=== PATIENT | female | born 1960 | race Caucasian/White ===

== ENCOUNTER 2018-02-05 09:15 | Inpatient (IN) | payer BC ==
[~2018-02-05] VITALS: Ht 182.9 cm; Wt 109.5 kg
[2018-02-05] MEDS ORDERED: GABA-532 (11:37)
[2018-02-05] MEDS ORDERED: LIRA0.6P2 (11:37)
[2018-02-05 12:31] LABS: BASOPHILS # (AUTO) 0.1 X10'3 (0-0.2); EOSINOPHILS # (AUTO) 0.1 X10'3 (0-0.9); LYMPHOCYTES # (AUTO) 2.6 X10'3 (1.1-4.8); LYMPHOCYTES % (AUTO) 36.3 % (21-51); MEAN CORPUSCULAR HEMOGLOBIN 29.8 PG (27.0-31.0); MEAN CORPUSCULAR HGB CONC 34.3 % (33.0-36.5); MEAN CORPUSCULAR VOLUME 86.8 FL (78-98); MEAN PLATELET VOLUME 8.2 FL (7.4-10.4); MONOCYTES # (AUTO) 0.5 X10'3 (0-0.9); MONOCYTES % (AUTO) 6.4 % (2-12); NEUTROPHILS # (AUTO) 3.8 X10'3 (1.8-7.7); NEUTROPHILS % (AUTO) 54.3 % (42-75); PRE OP HEMATOCRIT 44.5 % (35.0-45.0); PRE OP HEMOGLOBIN 15.3 g/dL (12.0-16.0); PRE OP PLATELET COUNT 178 X10'3 (140-440); RED BLOOD COUNT 5.13 X10'6 (4.20-5.60); RED CELL DISTRIBUTION WIDTH 14.5 % (11.5-14.5)
[2018-02-05 12:40] LABS: HEMOGLOBIN A1C 6.4 % (4.5-6.2)
[2018-02-05 12:47] LABS: PRE OP INR 1.1 INR; PRE OP PROTIME 10.9 SECONDS (9.0-12.0)
[2018-02-05 12:56] LABS: BLOOD UREA NITROGEN 13 MG/DL (7-18); BUN/CREATININE RATIO 19.4 (6.6-38.0); CHLORIDE 103 MMOL/L (99-107); CREATININE 0.67 MG/DL (0.40-0.90); PRE OP ANION GAP 7 (8-16); PRE OP GLUCOSE 112 MG/DL (70-104); PRE OP POTASSIUM 4.1 MMOL/L (3.4-5.1); PRE OP SODIUM 138 MMOL/L (135-145); TOTAL CARBON DIOXIDE 27.9 MMOL/L (24-32)
[2018-02-05 12:57] LABS: ALBUMIN 3.8 G/DL (3.4-5.0); ALBUMIN/GLOBULIN RATIO 1.1 (1.1-1.5); ALKALINE PHOSPHATASE 91 IU/L (46-116); CALCIUM 9.2 MG/DL (8.5-10.1); PRE OP ALT 42 U/L (30-65); PRE OP AST 27 U/L (10-37); PRE OP BILIRUB, TOTAL 0.5 MG/DL (0.0-1.0); TOTAL PROTEIN 7.2 G/DL (6.4-8.2); eGFR > 90 ML/MIN
[2018-02-09] MEDS ORDERED: ALLO300T2 PO (10:18)
[2018-02-09] MEDS ORDERED: ALPR-623 PO (10:20)
[2018-02-09] MEDS ORDERED: AMIT25TA10 PO (10:21)
[2018-02-09] MEDS ORDERED: DULO-31 PO (10:23)
[2018-02-09] MEDS ORDERED: ESCI10TA PO (10:24)
[2018-02-09] MEDS ORDERED: METF500T PO (10:27)
[2018-02-09] MEDS ORDERED: METO50TA7 PO (10:28)
[2018-02-09] MEDS ORDERED: ROSU10TA PO (10:31)
[2018-02-09] MEDS ORDERED: VALS80TA2 PO (10:33)
[2018-02-10] VITALS (16 sets, daily range): BP systolic 88–161; BP diastolic 58–98
[2018-02-10] MEDS ORDERED: ringers solution, lacted 1,000 ML IV SCH ×2 (05:00→15:01)
[2018-02-10] MEDS ORDERED: DOCUMENT DATE & TIME OF BETA-BLOCKER PO ONE (05:30)
[2018-02-10] MEDS ORDERED: tranexamic acid inj. 1,000 MG in normal saline 100ml IV soln 90 ML IV ONE (05:30)
[2018-02-10] MEDS ORDERED: vancomycin inj 1,500 MG in normal saline 300ml IV soln IV ONE (05:30)
[2018-02-10] MEDS ORDERED: famotidine 20mg tablet PO ONE (05:30)
[2018-02-10] MEDS ORDERED: ceFAZolin inj. 2,000 MG in normal saline 100ml IV soln 100 ML IV ONE (05:30)
[2018-02-10] MEDS ORDERED: LIDOcaine 1% (10mg/ml) 2ml vial ONE (12:55)
[2018-02-10] MEDS ORDERED: morphine 4 MG/ML inj SYRINge IV ONE (13:30)
[2018-02-10] MEDS ORDERED: desflurane 240ml liquid inh. IH ONE (13:40)
[2018-02-10] MEDS ORDERED: ePHEDrine 50MG/ML INJ. ONE (13:40)
[2018-02-10] MEDS ORDERED: morphine /PF 1mg/ml 10ml inj. ONE (13:45)
[2018-02-10] MEDS ORDERED: midazolam 2 mg/2 ml injection ONE (13:45)
[2018-02-10] MEDS ORDERED: BUPIVAcaine 0.5% inj/PF 30 ml vial ONE (13:48)
[2018-02-10] MEDS ORDERED: ceFAZolin 1000mg inj ONE (14:01)
[2018-02-10] MEDS ORDERED: LIDOcaine 2% (20mg/ml) 5ml vial ONE (14:57)
[2018-02-10] MEDS ORDERED: propofol inj 20 ML IV ONE (14:58)
[2018-02-10] MEDS ORDERED: rocuronium 10mg/ml inj IV ONE (14:58)
[2018-02-10] MEDS ORDERED: naloxone 2mg/2ml inj 2 MG in normal saline 500ml IV soln 500 ML IV PRN (15:03)
[2018-02-10] MEDS ORDERED: fentaNYL/PF 50MCG/1 ML 2ML syringe IV PRN (15:05)
[2018-02-10] MEDS ORDERED: ondansetron/PF 4mg/2ml inj IV PRN ×4 (15:05→17:15)
[2018-02-10] MEDS ORDERED: acetaminophen 1,000mg/100ml IV 100 ML IV PRN (15:05)
[2018-02-10] MEDS ORDERED: proCHLORperazine 10 MG/2 ml inj IV PRN (15:05)
[2018-02-10] MEDS ORDERED: morphine 4 MG/ML inj SYRINge IV PRN ×2 (15:05)
[2018-02-10] MEDS ORDERED: meperidine/PF 50mg/ml syringe IV PRN (15:05)
[2018-02-10] MEDS ORDERED: diphenhydrAMINE 50 mg/ml inj IV PRN (15:05)
[2018-02-10] MEDS ORDERED: dexamethasone sod phosphate 4mg/ml inj. ONE (16:41)
[2018-02-10] MEDS ORDERED: magnesium hydroxide 30ml (MOM) UD suspension PO PRN ×2 (17:15)
[2018-02-10] MEDS ORDERED: acetaminophen 325mg tablet PO PRN ×2 (17:15)
[2018-02-10] MEDS ORDERED: HYDROmorphone inj. 0.5 MG/0.5 ML DISP.SYRIN IV PRN (17:15)
[2018-02-10] MEDS ORDERED: HYDROcodone/acetaminophen 10/325mg tab PO PRN (17:15)
[2018-02-10] MEDS ORDERED: bisacodyl 10mg suppository rectal RC PRN ×2 (17:15)
[2018-02-10] MEDS ORDERED: diphenhydrAMINE 25mg capsule PO PRN ×4 (17:15)
[2018-02-10] MEDS: fentaNYL/PF 50MCG/1 ML 2ML syringe IV PRN ×2 (17:16→17:20)
[2018-02-10] MEDS ORDERED: dextrose 50%-water 50ml dispensing syringe IV PRN ×2 (17:20)
[2018-02-10] MEDS ORDERED: MESSAGE TO PHARMACY PO ONE (17:20)
[2018-02-10] MEDS ORDERED: dextrose ORAL solution 15 GM/59 ML bottle PO PRN ×2 (17:20)
[2018-02-10] MEDS: aspirin 81mg tablet.DR PO SCH (18:18)
[2018-02-10] MEDS: HYDROcodone/acetaminophen 10/325mg tab PO PRN ×2 (18:18→22:30)
[2018-02-10] MEDS ORDERED: vancomycin/NS 1 GM ADD-VANTAGE 250 ML IV SCH (20:00)
[2018-02-10] MEDS ORDERED: tranexamic acid inj. 1,100 MG in normal saline 100ml IV soln 100 ML IV ONE (20:00)
[2018-02-10] MEDS ORDERED: sennosides 8.6mg tablet PO SCH (21:00)
[2018-02-10] MEDS: valsartan 80mg tablet PO SCH (21:00)
[2018-02-10] MEDS: insulin glargine (Lantus) pen - multi-dose SQ SCH (21:00)
[2018-02-10] MEDS: gabapentin 300mg capsule PO SCH (21:24)
[2018-02-10] MEDS: allopurinol 300 MG tablet PO SCH (21:24)
[2018-02-10] MEDS: CITALOpram 10mg tablet PO SCH (21:24)
[2018-02-10] MEDS: sennosides 8.6mg tablet PO SCH (21:24)
[2018-02-10] MEDS: duloxetine 30mg CAPSULE.DR PO SCH (21:25)
[2018-02-10] MEDS: metoprolol succinate 25mg (24-HOUR) SR. Tablet PO SCH (21:25)
[2018-02-10] MEDS: amitriptyline 25mg tablet PO SCH (21:29)
[2018-02-10] MEDS: potassium cl 20mEq in 1/2 NS 1,000 ML IV SCH (22:34)
[2018-02-11] MEDS: ceFAZolin 1GM/D5W- ADD-VANTAGE 50 ML IV SCH ×2 (00:09→08:14)
[2018-02-11] MEDS: potassium cl 20mEq in 1/2 NS 1,000 ML IV SCH ×3 (01:12→18:57)
[2018-02-11] MEDS: HYDROcodone/acetaminophen 10/325mg tab PO PRN (02:18)
[2018-02-11 02:30] VITALS: BP 97/58
[2018-02-11] MEDS ORDERED: oxyCODONE/APAP 10/325mg tablet PO PRN (05:30)
[2018-02-11 05:57] LABS: BASOPHILS % (AUTO) 0.3 % (0-1); EOSINOPHILS # (AUTO) 0.1 X10'3 (0-0.9); EOSINOPHILS % (AUTO) 1.4 % (0-6); HEMATOCRIT 38.6 % (35.0-45.0); LYMPHOCYTES # (AUTO) 0.7 X10'3 (1.1-4.8); LYMPHOCYTES % (AUTO) 9.4 % (21-51); MEAN CORPUSCULAR HEMOGLOBIN 29.8 PG (27.0-31.0); MEAN CORPUSCULAR HGB CONC 33.8 % (33.0-36.5); MEAN PLATELET VOLUME 8.3 FL (7.4-10.4); MONOCYTES # (AUTO) 0.3 X10'3 (0-0.9); MONOCYTES % (AUTO) 3.4 % (2-12); NEUTROPHILS # (AUTO) 6.8 X10'3 (1.8-7.7); NEUTROPHILS % (AUTO) 85.5 % (42-75); PLATELET COUNT 192 X10'3 (140-440); RED BLOOD COUNT 4.38 X10'6 (4.20-5.60); RED CELL DISTRIBUTION WIDTH 14.2 % (11.5-14.5); WHITE BLOOD COUNT 7.9 X10'3 (4.5-11.0)
[2018-02-11 06:00] VITALS: BP 122/73
[2018-02-11] MEDS: oxyCODONE/APAP 10/325mg tablet PO PRN ×4 (06:05→19:55)
[2018-02-11 06:42] LABS: ALANINE AMINOTRANSFERASE 32 U/L (12-78); ALBUMIN 3.1 G/DL (3.4-5.0); ALKALINE PHOSPHATASE 69 IU/L (46-116); ANION GAP 11 (8-16); ASPARTATE AMINO TRANSFERASE 25 U/L (10-37); BILIRUBIN,TOTAL 0.4 MG/DL (0.1-1.0); BLOOD UREA NITROGEN 12 MG/DL (7-18); CALCIUM 8.8 MG/DL (8.5-10.1); CHLORIDE 101 MMOL/L (99-107); CREATININE 0.86 MG/DL (0.40-0.90); GLUCOSE 260 MG/DL (70-104); POTASSIUM 4.8 MMOL/L (3.5-5.1); SODIUM 137 MMOL/L (135-145); TOTAL CARBON DIOXIDE 25.3 MMOL/L (24-32); TOTAL PROTEIN 6.1 G/DL (6.4-8.2); eGFR 68 ML/MIN
[2018-02-11] MEDS: aspirin 81mg tablet.DR PO SCH ×2 (08:13→18:56)
[2018-02-11] MEDS: HYDROmorphone 2mg tablet PO PRN ×4 (09:01→22:13)
[2018-02-11 10:00] VITALS: BP 108/63
[2018-02-11] MEDS: metFORMIN 500mg tablet PO SCH (10:30)
[2018-02-11 14:00] VITALS: BP 126/66
[2018-02-11 18:39] VITALS: BP 132/77
[2018-02-11] MEDS: insulin glargine (Lantus) pen - multi-dose SQ SCH (21:00)
[2018-02-11] MEDS: CITALOpram 10mg tablet PO SCH (21:11)
[2018-02-11] MEDS: duloxetine 30mg CAPSULE.DR PO SCH (21:11)
[2018-02-11] MEDS: metoprolol succinate 25mg (24-HOUR) SR. Tablet PO SCH (21:11)
[2018-02-11] MEDS: amitriptyline 25mg tablet PO SCH (21:11)
[2018-02-11] MEDS: valsartan 80mg tablet PO SCH (21:11)
[2018-02-11] MEDS: allopurinol 300 MG tablet PO SCH (21:12)
[2018-02-11] MEDS: sennosides 8.6mg tablet PO SCH (21:12)
[2018-02-11] MEDS: gabapentin 300mg capsule PO SCH (21:12)
[2018-02-11 22:35] VITALS: BP 113/68
[2018-02-12] MEDS: oxyCODONE/APAP 10/325mg tablet PO PRN ×6 (00:18→21:32)
[2018-02-12] MEDS: HYDROmorphone 2mg tablet PO PRN ×5 (02:32→20:13)
[2018-02-12 05:41] LABS: BASOPHILS % (AUTO) 0.5 % (0-1); EOSINOPHILS # (AUTO) 0.1 X10'3 (0-0.9); EOSINOPHILS % (AUTO) 1.6 % (0-6); HEMATOCRIT 35.2 % (35.0-45.0); HEMOGLOBIN 11.9 g/dl (12.0-16.0); LYMPHOCYTES # (AUTO) 2.3 X10'3 (1.1-4.8); LYMPHOCYTES % (AUTO) 32.8 % (21-51); MEAN CORPUSCULAR HEMOGLOBIN 29.8 PG (27.0-31.0); MEAN CORPUSCULAR HGB CONC 33.9 % (33.0-36.5); MEAN CORPUSCULAR VOLUME 87.8 FL (78-98); MEAN PLATELET VOLUME 8.3 FL (7.4-10.4); MONOCYTES # (AUTO) 0.5 X10'3 (0-0.9); MONOCYTES % (AUTO) 6.9 % (2-12); NEUTROPHILS # (AUTO) 4.2 X10'3 (1.8-7.7); NEUTROPHILS % (AUTO) 58.2 % (42-75); PLATELET COUNT 154 X10'3 (140-440); RED BLOOD COUNT 4.01 X10'6 (4.20-5.60); RED CELL DISTRIBUTION WIDTH 14.2 % (11.5-14.5); WHITE BLOOD COUNT 7.2 X10'3 (4.5-11.0)
[2018-02-12 06:25] LABS: ALANINE AMINOTRANSFERASE 24 U/L (12-78); ALBUMIN 2.8 G/DL (3.4-5.0); ALBUMIN/GLOBULIN RATIO 0.9 (1.1-1.5); ALKALINE PHOSPHATASE 62 IU/L (46-116); ANION GAP 8 (8-16); ASPARTATE AMINO TRANSFERASE 15 U/L (10-37); BILIRUBIN,TOTAL 0.2 MG/DL (0.1-1.0); BLOOD UREA NITROGEN 7 MG/DL (7-18); BUN/CREATININE RATIO 10.9 (6.6-38.0); CALCIUM 8.5 MG/DL (8.5-10.1); CHLORIDE 105 MMOL/L (99-107); CREATININE 0.64 MG/DL (0.40-0.90); GLUCOSE 200 MG/DL (70-104); POTASSIUM 3.9 MMOL/L (3.5-5.1); SODIUM 141 MMOL/L (135-145); TOTAL CARBON DIOXIDE 28.1 MMOL/L (24-32); TOTAL PROTEIN 5.8 G/DL (6.4-8.2); eGFR > 90 ML/MIN
[2018-02-12] MEDS: aspirin 81mg tablet.DR PO SCH ×2 (07:06→17:33)
[2018-02-12] MEDS: metFORMIN 500mg tablet PO SCH (07:06)
[2018-02-12 10:20] VITALS: BP 113/64
[2018-02-12 18:00] VITALS: BP 117/67
[2018-02-12] MEDS: gabapentin 300mg capsule PO SCH (20:56)
[2018-02-12] MEDS: valsartan 80mg tablet PO SCH (20:56)
[2018-02-12] MEDS: duloxetine 30mg CAPSULE.DR PO SCH (20:56)
[2018-02-12] MEDS: CITALOpram 10mg tablet PO SCH (20:56)
[2018-02-12] MEDS: amitriptyline 25mg tablet PO SCH (20:56)
[2018-02-12] MEDS: metoprolol succinate 25mg (24-HOUR) SR. Tablet PO SCH (20:57)
[2018-02-12] MEDS: sennosides 8.6mg tablet PO SCH (20:57)
[2018-02-12] MEDS: insulin glargine (Lantus) pen - multi-dose SQ SCH (21:00)
[2018-02-12] MEDS: allopurinol 300 MG tablet PO SCH (21:05)
[2018-02-12 22:00] VITALS: BP 105/66
[2018-02-13] MEDS: HYDROmorphone 2mg tablet PO PRN (00:16)
[2018-02-13] MEDS: oxyCODONE/APAP 10/325mg tablet PO PRN ×2 (01:38→05:33)
[2018-02-13 06:25] LABS: BASOPHILS % (AUTO) 0.4 % (0-1); EOSINOPHILS # (AUTO) 0.2 X10'3 (0-0.9); EOSINOPHILS % (AUTO) 2.1 % (0-6); HEMATOCRIT 40.1 % (35.0-45.0); HEMOGLOBIN 13.6 g/dl (12.0-16.0); LYMPHOCYTES # (AUTO) 3.5 X10'3 (1.1-4.8); LYMPHOCYTES % (AUTO) 38.3 % (21-51); MEAN CORPUSCULAR HEMOGLOBIN 29.7 PG (27.0-31.0); MEAN CORPUSCULAR HGB CONC 33.8 % (33.0-36.5); MEAN CORPUSCULAR VOLUME 87.8 FL (78-98); MEAN PLATELET VOLUME 8.1 FL (7.4-10.4); MONOCYTES # (AUTO) 0.7 X10'3 (0-0.9); MONOCYTES % (AUTO) 7.4 % (2-12); NEUTROPHILS # (AUTO) 4.7 X10'3 (1.8-7.7); NEUTROPHILS % (AUTO) 51.8 % (42-75); PLATELET COUNT 201 X10'3 (140-440); RED BLOOD COUNT 4.57 X10'6 (4.20-5.60); RED CELL DISTRIBUTION WIDTH 14.5 % (11.5-14.5); WHITE BLOOD COUNT 9.1 X10'3 (4.5-11.0)
[2018-02-13 06:46] LABS: ALANINE AMINOTRANSFERASE 25 U/L (12-78); ALBUMIN 3.2 G/DL (3.4-5.0); ALBUMIN/GLOBULIN RATIO 0.8 (1.1-1.5); ALKALINE PHOSPHATASE 75 IU/L (46-116); ANION GAP 10 (8-16); ASPARTATE AMINO TRANSFERASE 16 U/L (10-37); BILIRUBIN,TOTAL 0.4 MG/DL (0.1-1.0); BLOOD UREA NITROGEN 9 MG/DL (7-18); BUN/CREATININE RATIO 13.2 (6.6-38.0); CALCIUM 9.4 MG/DL (8.5-10.1); CHLORIDE 100 MMOL/L (99-107); CREATININE 0.68 MG/DL (0.40-0.90); GLUCOSE 132 MG/DL (70-104); SODIUM 142 MMOL/L (135-145); TOTAL CARBON DIOXIDE 32.2 MMOL/L (24-32); eGFR 90 ML/MIN
[2018-02-13 06:50] VITALS: BP 106/71
[2018-02-13] MEDS: aspirin 81mg tablet.DR PO SCH (08:03)
[2018-02-13] MEDS: metFORMIN 500mg tablet PO SCH (08:03)
[2018-02-13 10:46] VITALS: BP 98/59
[2018-02-13 13:23] VITALS: BP 133/83
[2018-02-13] MEDS ORDERED: ketorolac trometh. 30mg/ml inj. IV ONE (13:40)
== END 2018-02-13 15:10 | DRG 470 ==
LOC: EDSTATUS 10:50 → PAS IN 02-10 12:43 → EDSTATUS 02-10 14:45 → ORTHO 4S 02-10 17:45
PROVIDERS: ADMIT Orthopaedic Surgery; ATTEND Orthopaedic Surgery
PROC: 3E0T3BZ Introduction of Anesthetic Agent into Peripheral Nerves and Plexi, Percutaneous Approach (ICD-10-PCS; 2018-02-10)
PROC: 0SRB06Z Replacement of Left Hip Joint with Oxidized Zirconium on Polyethylene Synthetic Substitute, Open Approach (ICD-10-PCS; principal; 2018-02-10 13:40)
DX: M16.12 Unilateral primary osteoarthritis, left hip (principal); E11.8 Type 2 diabetes mellitus with unspecified complications; D62 Acute posthemorrhagic anemia; I10 Essential (primary) hypertension; E11.9 Type 2 diabetes mellitus without complications; F32.9 Major depressive disorder, single episode, unspecified; F41.9 Anxiety disorder, unspecified; M10.9 Gout, unspecified; Z79.899 Other long term (current) drug therapy; Z79.01 Long term (current) use of anticoagulants; Z85.51 Personal history of malignant neoplasm of bladder; Z91.040 Latex allergy status; Z79.4 Long term (current) use of insulin
CPT/HCPCS: 36415; 80053; 82948; 83036; 85025; 85610; 85730; 86885; 86900; 86901; 86920; 87070; 93005; 97110; 97116; 97161; 97530; A7000; C1758; C1776; J0131; J0690; J1100; J1815; J1885; J2001; J2175; J2250; J2270; J2274; J2405; J2704; J3010; J3370; J3490; J7030; J7120